=== PATIENT | female | born 2000 | race Caucasian/White ===

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

== ENCOUNTER 2023-04-11 13:23 | Emergency (ER) | payer SELFPAY ==
[~2023-04-11] VITALS: Ht 167.6 cm; Wt 67.3 kg
[2023-04-11 13:32] VITALS: TEMP 98.2
[2023-04-11] MEDS ORDERED: LR 1,000 ML IV ONE (15:30)
[2023-04-11 16:04] LABS: BASO # 0.1 K/mm3 (0.0-0.2); BASO % 0.4 % (0.0-2.0); GRAN # 11.7 K/mm3 (1.4-6.5); GRAN % 87.9 % (42.2-75.2); HEMATOCRIT 43.4 % (37.0-47.0); HEMOGLOBIN 14.5 g/dl (12.5-16.0); LYMPH # 0.9 K/mm3 (1.2-3.4); LYMPH % 6.5 % (20.0-51.0); MEAN CELL VOLUME 92 fl (80.0-100.0); MEAN CORPUSCULAR HEMOGLOBIN 31 pg (27-31); MEAN CORPUSCULAR HGB CONC 33 g/dl (33.0-37.0); MEAN PLATELET VOLUME 10.3 fl (7.4-10.4); MONO # 0.7 K/mm3 (0.1-0.6); PLATELET COUNT 267 K/mm3 (130-400); RED BLOOD COUNT 4.72 M/mm3 (4.10-5.30); REDCELL DISTRIBUTION WIDTH-CV 13.2 % (11.5-14.5)
[2023-04-11 16:11] LABS: URINE APPEARANCE CLEAR (CLEAR/HAZY); URINE BLOOD NEGATIVE (NEGATIVE); URINE COLOR YELLOW (YELLOW); URINE GLUCOSE NEGATIVE (NEGATIVE); URINE KETONE NEGATIVE (NEGATIVE); URINE NITRATE NEGATIVE (NEGATIVE); URINE PROTEIN(semi-quant) 2+ (NEGATIVE)
[2023-04-11 16:15] LABS: COLLECTION METHOD CLEAN CATCH
[2023-04-11 16:32] LABS: ALBUMIN 4.4 gm/dL (3.5-5.0); BILIRUBIN,TOTAL 0.4 mg/dL (0.2-1.2); C-REACTIVE PROTEIN 0.02 mg/dL (0.00-0.50); CALCIUM 9.8 mg/dL (8.4-10.2); CREATININE, serum 0.7 mg/dL (0.57-1.11); POTASSIUM 3.6 mmol/L (3.5-4.5); TOTAL PROTEIN 7.3 gm/dL (6.2-8.1)
[2023-04-11] MEDS ORDERED: ZOFRAN ODT4 MG PO (17:43)
[2023-04-11 18:04] VITALS: BP 112/75; PULSE 95
== END 2023-04-11 18:04 | disposition home or self-care (01) ==
LOC: COL.ER 13:23
PROVIDERS: Emergency Medicine
DX: R11.2 Nausea with vomiting, unspecified (principal); D72.829 Elevated white blood cell count, unspecified; R10.84 Generalized abdominal pain
CPT/HCPCS: J7120

== ENCOUNTER 2023-10-30 00:51 | Emergency (ER) | payer SELFPAY ==
[~2023-10-30] VITALS: Ht 170.2 cm; Wt 63.6 kg
[~2023-10-30 00:51] MED LIST changes: +ZOFRAN ODT4 MG PO
[2023-10-30 01:03] VITALS: TEMP 97.1
[2023-10-30] MEDS ORDERED: NS 1,000 ML IV ONE (01:30)
[2023-10-30] MEDS ORDERED: LORazepam 2 MG/ML 1 ML VIAL IV ONE (01:30)
[2023-10-30] MEDS ORDERED: Ondansetron 4 MG/2 ML VIAL IV ONE (01:30)
[2023-10-30 01:48] LABS: COLLECTION METHOD CLEAN CATCH
[2023-10-30 01:55] LABS: PH 8.5 (5.0-8.5); URINE APPEARANCE CLEAR (CLEAR/HAZY); URINE BLOOD NEGATIVE (NEGATIVE); URINE COLOR YELLOW (YELLOW); URINE GLUCOSE NEGATIVE (NEGATIVE); URINE KETONE NEGATIVE (NEGATIVE); URINE NITRATE NEGATIVE (NEGATIVE); URINE PROTEIN(semi-quant) NEGATIVE (NEGATIVE); URINE UROBILINOGEN 0.2 E.U/dL (0.2-1.0)
[2023-10-30 01:55] LABS: BASO # 0.1 K/mm3 (0.0-0.2); BASO % 0.8 % (0.0-2.0); EOS # 0.6 K/mm3 (0.0-0.7); GRAN % 72.1 % (42.2-75.2); HEMATOCRIT 41.2 % (37.0-47.0); HEMOGLOBIN 13.9 g/dl (12.5-16.0); LYMPH # 1.7 K/mm3 (1.2-3.4); LYMPH % 15.2 % (20.0-51.0); MEAN CELL VOLUME 91 fl (80.0-100.0); MEAN CORPUSCULAR HEMOGLOBIN 31 pg (27-31); MEAN CORPUSCULAR HGB CONC 34 g/dl (33.0-37.0); MEAN PLATELET VOLUME 9.9 fl (7.4-10.4); MONO # 0.7 K/mm3 (0.1-0.6); MONO % 6.6 % (1.7-9.3); PLATELET COUNT 267 K/mm3 (130-400); RED BLOOD COUNT 4.52 M/mm3 (4.10-5.30)
[2023-10-30 02:10] LABS: TRICYCLIC ANTIDEPRESS URINE NEGATIVE (NEGATIVE)
[2023-10-30 02:14] LABS: ALBUMIN 4.2 g/dL (3.5-5.0); BILIRUBIN,TOTAL 0.5 mg/dL (0.2-1.2); CALCIUM 9.2 mg/dL (8.4-10.2); CREATININE, serum 0.71 mg/dL (0.57-1.11); POTASSIUM 3.8 mEq/L (3.5-4.5)
[2023-10-30] MEDS ORDERED: ZOFRAN ODT4 MG PO (04:08)
[2023-10-30] MEDS ORDERED: NAPROXEN 3375 MG/TAB PO (04:08)
[2023-10-30 04:36] VITALS: BP 124/80; PULSE 64
== END 2023-10-30 04:38 | disposition home or self-care (01) ==
LOC: COL.ER 00:51
PROVIDERS: Emergency Medicine
DX: N94.6 Dysmenorrhea, unspecified (principal)
CPT/HCPCS: J2060; J2405; J7030

== ENCOUNTER 2023-11-20 09:18 | Emergency (ER) | payer SELFPAY ==
[~2023-11-20] VITALS: Ht 170.2 cm; Wt 63.6 kg
[~2023-11-20 09:18] MED LIST changes: +NAPROXEN 3375 MG/TAB PO
[2023-11-20 09:24] VITALS: TEMP 97.8
[2023-11-20 09:44] LABS: BASO # 0.1 K/mm3 (0.0-0.2); BASO % 0.6 % (0.0-2.0); EOS # 0.4 K/mm3 (0.0-0.7); EOS % 3.1 % (0.0-4.0); GRAN # 9.8 K/mm3 (1.4-6.5); GRAN % 76.7 % (42.2-75.2); HEMATOCRIT 42.9 % (37.0-47.0); HEMOGLOBIN 14.6 g/dl (12.5-16.0); LYMPH # 1.7 K/mm3 (1.2-3.4); LYMPH % 13.3 % (20.0-51.0); MEAN CELL VOLUME 90 fl (80.0-100.0); MEAN CORPUSCULAR HEMOGLOBIN 31 pg (27-31); MEAN CORPUSCULAR HGB CONC 34 g/dl (33.0-37.0); MEAN PLATELET VOLUME 9.8 fl (7.4-10.4); MONO # 0.8 K/mm3 (0.1-0.6); MONO % 6.1 % (1.7-9.3); PLATELET COUNT 271 K/mm3 (130-400); RED BLOOD COUNT 4.75 M/mm3 (4.10-5.30); REDCELL DISTRIBUTION WIDTH-CV 13.1 % (11.5-14.5)
[2023-11-20] MEDS ORDERED: NS 1,000 ML IV ONE (09:45)
[2023-11-20] MEDS ORDERED: droPERidol 2.5 MG/ML 2 ML VIAL IV ONE (09:45)
[2023-11-20 09:57] LABS: ALBUMIN 4.4 g/dL (3.5-5.0); BILIRUBIN,TOTAL 0.4 mg/dL (0.2-1.2); CALCIUM 9.6 mg/dL (8.4-10.2); CREATININE, serum 0.68 mg/dL (0.57-1.11); POTASSIUM 3.9 mEq/L (3.5-4.5); TOTAL PROTEIN 7.3 g/dl (6.2-8.1)
[2023-11-20 11:00] VITALS: BP 104/58; PULSE 84
== END 2023-11-20 11:00 | disposition home or self-care (01) ==
LOC: COL.ER 09:18
PROVIDERS: Personal Emergency Response Attendant
DX: R11.10 Vomiting, unspecified (principal)
CPT/HCPCS: J1790; J7030